=== PATIENT | female | born 1975 | race Caucasian/White ===

== ENCOUNTER 2016-06-10 10:00 | Emergency (ER) | payer OTHER ==
[~2016-06-10] VITALS: Ht 149.9 cm; Wt 48.1 kg
[~2016-06-10 10:00] MED LIST: CALCIUM 600 MG1 EACH PO; CYANOCOBAL1000 MCG/2 IM; DAILY VITE1 EAC1 PO; DEPRIZINE15 MG/1 ML PO; SUMATRIPTAN SUC25 MG PO; TRAZODONE HCL50 MG PO; VENLAFAXINE HCL75 MG PO; WELLBUTRIN XL300 MG PO
[2016-06-10] MEDS ORDERED: BRINTELLIX20 MG PO (10:14)
[2016-06-10] MEDS ORDERED: LAMICTAL100 MG PO (10:15)
[2016-06-10] MEDS ORDERED: LAMICTAL25 MG PO (10:15)
[2016-06-10] MEDS ORDERED: LEVONO-E ESTRA1 EACH PO (10:15)
[2016-06-10] MEDS ORDERED: VALIUM10 MG PO (10:16)
[2016-06-10 11:27] LABS: EOSINOPHIL (%) 0.4 % (0-5); HEMATOCRIT 34.2 % (36.0-46.0); IMMATURE GRANULOCYTE (%) 0.2 % (0.0-0.7); IMMATURE GRANULOCYTE COUNT 0.1 K/uL; LYMPHOCYTE COUNT 2.3 K/uL (1.0-2.8); MCH 32.6 PG (29.0-34.0); MCHC 34.5 G/DL (30.0-36.0); MCV 94.5 FL (83-99); MEAN PLAT.VOLUME 11.6 uM^3 (9.5-12.4); MONOCYTE (%) 4.4 % (3-12); MONOCYTE COUNT 0.2 K/uL (0-0.8); NEUTROPHIL (%) 51.4 % (45-76); NEUTROPHIL COUNT 2.7 K/uL (1.8-6.4); PLATELET COUNT 256 K/uL (156-360); RBC DIS.WIDTH-CV 12.4 % (11.8-14.6); RBC DIS.WIDTH-SD 41.4 % (39-53); RED BLOOD COUNT 3.62 M/uL (3.80-5.20); WHITE BLOOD COUNT 5.3 K/uL (4.1-10.2)
[2016-06-10 11:41] LABS: CHLORIDE 112 mEq/L (99-109); POTASSIUM 3.9 mEq/L (3.7-5.4); SODIUM 142 mEq/L (136-147)
[2016-06-10 11:43] LABS: GLUCOSE 87 mg/dL (70-99)
[2016-06-10 11:44] LABS: ANION GAP 10 MEQ/L (2-14)
[2016-06-10 11:46] LABS: SERUM ETHYL ALCOHOL < 10 mg/dL
[2016-06-10 11:47] LABS: GFR ESTIMATE (CALCULATED) > 59 mL/min/; UREA NITROGEN (BUN) 6 mg/dL (9-23)
[2016-06-10 11:56] LABS: QUANTITATIVE HCG < 4.0 MIU/ML
[2016-06-10 12:16] VITALS: BP 128/82
== END 2016-06-10 12:17 | disposition home or self-care (01) ==
LOC: EME → EDBD 10:00 → EME 12:17
PROVIDERS: Emergency Medicine
DX: F33.2 Major depressive disorder, recurrent severe without psychotic features (principal); F41.9 Anxiety disorder, unspecified; F17.200 Nicotine dependence, unspecified, uncomplicated
CPT/HCPCS: 80048; 81003; 84702; 85025; 90839; 99281; 99284; G0480

== ENCOUNTER 2016-11-29 15:37 | Emergency (ER) | payer OTHER ==
[~2016-11-29] VITALS: Ht 147.3 cm; Wt 46.6 kg
[~2016-11-29 15:37] MED LIST changes: +BRINTELLIX20 MG PO; +LAMICTAL100 MG PO; +LAMICTAL25 MG PO; +LEVONO-E ESTRA1 EACH PO; +VALIUM10 MG PO
[2016-11-29 16:31] LABS: HEMATOCRIT 32.4 % (36.0-46.0); MCH 32.8 PG (29.0-34.0); MCHC 33.6 G/DL (30.0-36.0); MCV 97.6 FL (83-99); MEAN PLAT.VOLUME 10.9 uM^3 (9.5-12.4); PLATELET COUNT 280 K/uL (156-360); RBC DIS.WIDTH-CV 12.8 % (11.8-14.6); RBC DIS.WIDTH-SD 45.5 % (39-53); RED BLOOD COUNT 3.32 M/uL (3.80-5.20)
[2016-11-29 16:32] LABS: ADD MIUA? NO; BILIRUBIN NEGATIVE; BLOOD NEGATIVE; COLOR STRAW ((YELLOW)); GLUCOSE (STRIP) NEGATIVE; KETONES NEGATIVE; LEUKOCYTES NEGATIVE; NITRITE NEGATIVE; PROTEIN (STRIP) NEGATIVE; SPECIFIC GRAVITY 1.002 (1.000-1.030); UROBILINOGEN 0.2 MG/DL (0.2-1.0)
[2016-11-29 16:42] LABS: CHLORIDE 106 mEq/L (99-109); POTASSIUM 3.6 mEq/L (3.7-5.4)
[2016-11-29 16:43] LABS: SODIUM 141 mEq/L (136-147)
[2016-11-29 16:45] LABS: GLUCOSE 85 mg/dL (70-99)
[2016-11-29 16:46] LABS: ANION GAP 13 MEQ/L (2-14)
[2016-11-29 16:47] LABS: TOTAL BILIRUBIN 0.3 mg/dL (0.0-1.0)
[2016-11-29 16:48] LABS: ALKALINE PHOSPHATASE 68 IU/L (3-129); GFR ESTIMATE (CALCULATED) > 59 mL/min/
[2016-11-29 16:50] LABS: UREA NITROGEN (BUN) 5 mg/dL (9-23)
[2016-11-29 16:52] LABS: LIPASE 63 U/L (1.0-51.0)
[2016-11-29 16:59] LABS: QUANTITATIVE HCG < 4.0 MIU/ML
[2016-11-29] MEDS ORDERED: CITRATE OF MAG296 ML PO (17:10)
[2016-11-29] MEDS ORDERED: PHENERGAN25 MG PR (17:42)
[2016-11-29 18:13] VITALS: BP 129/89
== END 2016-11-29 18:15 | disposition home or self-care (01) ==
LOC: EME 15:37
PROVIDERS: Physician Assistant
DX: K59.00 Constipation, unspecified (principal); E86.0 Dehydration; F32.9 Major depressive disorder, single episode, unspecified; F17.200 Nicotine dependence, unspecified, uncomplicated; Z98.84 Bariatric surgery status
CPT/HCPCS: 74000; 80053; 81003; 83690; 84702; 85027; 99281; 99284; J2765; J7030

== ENCOUNTER 2016-12-05 17:39 | Emergency (ER) | payer OTHER ==
[~2016-12-05] VITALS: Ht 147.3 cm; Wt 45.8 kg
[~2016-12-05 17:39] MED LIST changes: +CITRATE OF MAG296 ML PO; +PHENERGAN25 MG PR
[2016-12-05 19:01] LABS: ADD MEDTOX COMMENT Y; AMPHETAMINE NEGATIVE (500 ng/mL); BARBITURATES NEGATIVE (200 ng/mL); BENZODIAZEPINES PRESUMPTIVE POSITIVE (150 ng/mL); COCAINE NEGATIVE (150 ng/mL); INTERNAL CONTROLS VALID? YES; METHADONE NEGATIVE (200 ng/mL); METHAMPHETAMINE NEGATIVE (500 ng/mL); OPIATES (MORPHINE) NEGATIVE (100 ng/mL); OXYCODONE PRESUMPTIVE POSITIVE (100 ng/mL); PHENCYCLIDINE NEGATIVE (25 ng/mL); PROPOXYPHENE NEGATIVE (300 ng/mL); THC CANNABINOIDS PRESUMPTIVE POSITIVE (50 ng/mL); TRICYCLIC ANTIDEPRESSANTS NEGATIVE (300 ng/mL)
[2016-12-05 19:07] LABS: HEMATOCRIT 37.7 % (36.0-46.0); MCH 33.2 PG (29.0-34.0); MCHC 34.2 G/DL (30.0-36.0); MCV 96.9 FL (83-99); MEAN PLAT.VOLUME 11.1 uM^3 (9.5-12.4); PLATELET COUNT 270 K/uL (156-360); RBC DIS.WIDTH-CV 12.5 % (11.8-14.6); RBC DIS.WIDTH-SD 44.5 % (39-53); RED BLOOD COUNT 3.89 M/uL (3.80-5.20); WHITE BLOOD COUNT 8.7 K/uL (4.1-10.2)
[2016-12-05 19:20] LABS: CHLORIDE 105 mEq/L (99-109); SODIUM 137 mEq/L (136-147)
[2016-12-05 19:22] LABS: GLUCOSE 82 mg/dL (70-99)
[2016-12-05 19:23] LABS: ANION GAP 9 MEQ/L (2-14)
[2016-12-05 19:25] LABS: SERUM ETHYL ALCOHOL < 10 mg/dL
[2016-12-05 19:26] LABS: GFR ESTIMATE (CALCULATED) > 59 mL/min/
[2016-12-05 19:27] LABS: UREA NITROGEN (BUN) 9 mg/dL (9-23)
[2016-12-05 19:28] LABS: BENZODIAZEPINES, URINE SCREEN POSITIVE (200 ng/mL)
[2016-12-05 22:14] VITALS: BP 134/70
== END 2016-12-05 22:26 | disposition home or self-care (01) ==
LOC: EME 17:39
PROVIDERS: Emergency Medicine
DX: F32.9 Major depressive disorder, single episode, unspecified (principal); R45.851 Suicidal ideations; S50.812A Abrasion of left forearm, initial encounter; F19.10 Other psychoactive substance abuse, uncomplicated; F41.9 Anxiety disorder, unspecified; X78.8XXA Intentional self-harm by other sharp object, initial encounter; Z91.5 Personal history of self-harm; Z98.84 Bariatric surgery status; F17.200 Nicotine dependence, unspecified, uncomplicated
CPT/HCPCS: 80048; 84999; 85027; 90839; 99281; 99285; G0480

== ENCOUNTER 2017-01-23 19:12 | Emergency (ER) | payer OTHER ==
[~2017-01-23] VITALS: Ht 147.3 cm; Wt 47.2 kg
[2017-01-23 19:45] LABS: HEMATOCRIT 34.7 % (36.0-46.0); MCH 33.4 PG (29.0-34.0); MCHC 34.9 G/DL (30.0-36.0); MCV 95.9 FL (83-99); MEAN PLAT.VOLUME 10.3 uM^3 (9.5-12.4); PLATELET COUNT 256 K/uL (156-360); RBC DIS.WIDTH-CV 12.6 % (11.8-14.6); RBC DIS.WIDTH-SD 44.4 % (39-53); RED BLOOD COUNT 3.62 M/uL (3.80-5.20); WHITE BLOOD COUNT 6.8 K/uL (4.1-10.2)
[2017-01-23 19:58] LABS: CHLORIDE 106 mEq/L (99-109); POTASSIUM 3.5 mEq/L (3.7-5.4); SODIUM 138 mEq/L (136-147)
[2017-01-23 20:00] LABS: GLUCOSE 96 mg/dL (70-99)
[2017-01-23 20:02] LABS: ANION GAP 12 MEQ/L (2-14)
[2017-01-23 20:04] LABS: GFR ESTIMATE (CALCULATED) > 59 mL/min/
[2017-01-23 20:05] LABS: UREA NITROGEN (BUN) 9 mg/dL (9-23)
[2017-01-23 20:43] LABS: ADD MIUA? YES; BILIRUBIN NEGATIVE; BLOOD SMALL; COLOR YELLOW ((YELLOW)); GLUCOSE (STRIP) NEGATIVE; KETONES NEGATIVE; LEUKOCYTES NEGATIVE; NITRITE NEGATIVE; PROTEIN (STRIP) NEGATIVE; SPECIFIC GRAVITY 1.006 (1.000-1.030); UROBILINOGEN 0.2 MG/DL (0.2-1.0)
[2017-01-23 20:46] LABS: BACTERIA NONE SEEN /HPF; EPITHELIAL CELLS RARE /HPF; MUCUS TRACE /LPF; RED BLOOD CELLS 0-5 /HPF (0-5); UCUL ADDED? NO; WHITE BLOOD CELLS 0-5 /HPF (0-5)
[2017-01-23 21:51] VITALS: BP 145/93
== END 2017-01-23 21:55 | disposition home or self-care (01) ==
LOC: EME → EDBD 19:12 → EME 19:12
DX: R56.9 Unspecified convulsions (principal); F32.9 Major depressive disorder, single episode, unspecified; F17.200 Nicotine dependence, unspecified, uncomplicated; Z98.84 Bariatric surgery status; Z91.5 Personal history of self-harm
CPT/HCPCS: 70450; 80048; 81003; 85027; 99281; 99285

== ENCOUNTER 2017-01-28 21:49 | Emergency (ER) | payer OTHER ==
[~2017-01-28] VITALS: Ht 149.9 cm; Wt 48.5 kg
[2017-01-28 22:35] LABS: HEMATOCRIT 35.7 % (36.0-46.0); MCH 32.6 PG (29.0-34.0); MCHC 34.7 G/DL (30.0-36.0); MCV 93.9 FL (83-99); MEAN PLAT.VOLUME 10.8 uM^3 (9.5-12.4); PLATELET COUNT 265 K/uL (156-360); RBC DIS.WIDTH-CV 12.3 % (11.8-14.6); RBC DIS.WIDTH-SD 42.5 % (39-53); WHITE BLOOD COUNT 9.2 K/uL (4.1-10.2)
[2017-01-28 23:25] LABS: ALKALINE PHOSPHATASE 65 IU/L (3-129); ANION GAP 13 MEQ/L (2-14); CHLORIDE 104 MEQ/L (99-109); DIRECT BILIRUBIN 0.1 mg/dL (0.0-0.3); GFR ESTIMATE (CALCULATED) > 59 mL/min/; GLUCOSE 67 mg/dL (70-99); PHENOBARBITAL < 5.0 MCG/ML (15-40); POTASSIUM 3.8 MEQ/L (3.7-5.4); SAMPLE HEMOLYSIS CHECK 0; SAMPLE ICTERIC CHECK 0; SAMPLE LIPEMIA CHECK 0; SODIUM 137 MEQ/L (136-147); TOTAL BILIRUBIN 0.3 MG/DL (0.0-1.0); UREA NITROGEN (BUN) 8 mg/dL (9-23)
[2017-01-28 23:43] LABS: SALICYLATE < 3.0 MG/DL (15-30)
[2017-01-29 00:41] LABS: ADD MIUA? NO; BILIRUBIN NEGATIVE; BLOOD NEGATIVE; COLOR COLORLESS ((YELLOW)); GLUCOSE (STRIP) NEGATIVE; KETONES NEGATIVE; LEUKOCYTES NEGATIVE; NITRITE NEGATIVE; PROTEIN (STRIP) NEGATIVE; SPECIFIC GRAVITY 1.003 (1.000-1.030); UROBILINOGEN 0.2 MG/DL (0.2-1.0)
[2017-01-29 01:23] LABS: UCUL ADDED? NO
[2017-01-29 02:08] LABS: CREATINE KINASE 71 IU/L (1-294)
[2017-01-29 04:51] VITALS: BP 125/81
== END 2017-01-29 04:52 | disposition home or self-care (01) ==
LOC: EME 21:49
PROVIDERS: Emergency Medicine
DX: T43.291A Poisoning by other antidepressants, accidental (unintentional), initial encounter (principal); F41.9 Anxiety disorder, unspecified; R56.9 Unspecified convulsions; F33.2 Major depressive disorder, recurrent severe without psychotic features; R51 Headache; R00.0 Tachycardia, unspecified; R06.82 Tachypnea, not elsewhere classified; R45.83 Excessive crying of child, adolescent or adult; Z98.84 Bariatric surgery status; F17.200 Nicotine dependence, unspecified, uncomplicated
CPT/HCPCS: 80048; 80076; 80156; 80184; 80185; 81003; 82550; 85027; 90839; 93005; 99281; 99285; G0480; J2060; J7030

== ENCOUNTER 2017-02-09 12:43 | Inpatient (IN) | payer SELFPAY ==
[~2017-02-09] VITALS: Ht 147.3 cm; Wt 43.6 kg
[2017-02-09 13:45] LABS: EOSINOPHIL (%) 1.1 % (0-5); EOSINOPHIL COUNT 0.1 K/uL (0-0.3); HEMATOCRIT 36.9 % (36.0-46.0); IMMATURE GRANULOCYTE (%) 0.2 % (0.0-0.7); INSTRUMENT ABS NEUTROPHIL CT 2.9 K/uL; LYMPHOCYTE COUNT 2.8 K/uL (1.0-2.8); MCH 31.9 PG (29.0-34.0); MCHC 34.4 G/DL (30.0-36.0); MCV 92.7 FL (83-99); MEAN PLAT.VOLUME 10.8 uM^3 (9.5-12.4); MONOCYTE (%) 9.8 % (3-12); MONOCYTE COUNT 0.6 K/uL (0-0.8); NEUTROPHIL (%) 44.8 % (45-76); NEUTROPHIL COUNT 2.9 K/uL (1.8-6.4); PLATELET COUNT 255 K/uL (156-360); RBC DIS.WIDTH-CV 12.3 % (11.8-14.6); RBC DIS.WIDTH-SD 42.5 % (39-53); RED BLOOD COUNT 3.98 M/uL (3.80-5.20); WHITE BLOOD COUNT 6.4 K/uL (4.1-10.2)
[2017-02-09 13:52] LABS: CHLORIDE 105 mEq/L (99-109); POTASSIUM 3.9 mEq/L (3.7-5.4); SODIUM 142 mEq/L (136-147)
[2017-02-09 13:55] LABS: GLUCOSE 57 mg/dL (70-99)
[2017-02-09 13:56] LABS: ANION GAP 14 MEQ/L (2-14); TOTAL BILIRUBIN 0.5 mg/dL (0.0-1.0)
[2017-02-09 13:57] LABS: SERUM ETHYL ALCOHOL < 10 mg/dL
[2017-02-09 13:58] LABS: GFR ESTIMATE (CALCULATED) > 59 mL/min/
[2017-02-09 13:59] LABS: ALKALINE PHOSPHATASE 71 IU/L (3-129)
[2017-02-09 14:00] LABS: DIRECT BILIRUBIN 0.2 mg/dL (0.0-0.3); UREA NITROGEN (BUN) 10 mg/dL (9-23)
[2017-02-09 14:02] LABS: CREATINE KINASE 91 IU/L (1-294); SALICYLATE < 5.0 MG/DL (15-30); TOTAL CK 91 IU/L (1-294)
[2017-02-09 15:21] LABS: ADD MIUA? NO; BILIRUBIN NEGATIVE; BLOOD NEGATIVE; COLOR STRAW ((YELLOW)); GLUCOSE (STRIP) NEGATIVE; KETONES NEGATIVE; LEUKOCYTES NEGATIVE; NITRITE NEGATIVE; PROTEIN (STRIP) NEGATIVE; SPECIFIC GRAVITY 1.004 (1.000-1.030); UROBILINOGEN 0.2 MG/DL (0.2-1.0)
[2017-02-09 15:33] LABS: AMPHETAMINE NEGATIVE (500 ng/mL); BARBITURATES NEGATIVE (200 ng/mL); BENZODIAZEPINES NEGATIVE (150 ng/mL); COCAINE NEGATIVE (150 ng/mL); INTERNAL CONTROLS VALID? YES; METHADONE NEGATIVE (200 ng/mL); METHAMPHETAMINE NEGATIVE (500 ng/mL); OPIATES (MORPHINE) NEGATIVE (100 ng/mL); OXYCODONE NEGATIVE (100 ng/mL); PHENCYCLIDINE NEGATIVE (25 ng/mL); PROPOXYPHENE NEGATIVE (300 ng/mL); THC CANNABINOIDS NEGATIVE (50 ng/mL); TRICYCLIC ANTIDEPRESSANTS NEGATIVE (300 ng/mL)
[2017-02-09] MEDS ORDERED: RANITIDINE HCL150 M1 PO (21:04)
[2017-02-09] MEDS ORDERED: NEURONTIN600 MG PO (21:04)
[2017-02-09] MEDS ORDERED: KLONOPIN1 MG PO ×2 (21:06→21:07)
[2017-02-09] MEDS ORDERED: BRINTELLIX10 MG PO (21:08)
[2017-02-09] MEDS ORDERED: EXCEDRIN MIGRA1 EAC3 PO (21:10)
[2017-02-09 22:11] VITALS: BP 114/78
[2017-02-10 07:56] VITALS: BP 121/70
[2017-02-10 15:36] VITALS: BP 151/76
[2017-02-10 19:31] VITALS: BP 123/75
[2017-02-11 07:16] VITALS: BP 102/59
[2017-02-11 15:28] VITALS: BP 11/65
[2017-02-12 07:24] VITALS: BP 87/49
[2017-02-12 15:25] VITALS: BP 109/59
[2017-02-13 07:36] VITALS: BP 103/66
[2017-02-13] MEDS ORDERED: PAXIL30 MG PO (09:06)
[2017-02-13] MEDS ORDERED: BUTALB-APAP-CA1 EACH PO (11:24)
== END 2017-02-13 11:26 | disposition home or self-care (01) | DRG 885 ==
LOC: EME 12:43 → EDOF 20:16 → 1WEST 20:16 → ENRESERV 21:20 → 1WEST 21:51
PROVIDERS: Emergency Medicine
DX: F33.2 Major depressive disorder, recurrent severe without psychotic features (principal); F41.9 Anxiety disorder, unspecified; F60.9 Personality disorder, unspecified; T43.292A Poisoning by other antidepressants, intentional self-harm, initial encounter; T42.6X2A Poisoning by other antiepileptic and sedative-hypnotic drugs, intentional self-harm, initial encounter; F12.90 Cannabis use, unspecified, uncomplicated; R00.0 Tachycardia, unspecified; F17.200 Nicotine dependence, unspecified, uncomplicated; Z98.84 Bariatric surgery status; Z91.5 Personal history of self-harm
CPT/HCPCS: 80048; 80076; 81003; 82306; 82550; 82553; 82607; 82746; 85025; 90839; 93005; 97150 GO; 97165 GO; 99281; 99285; G0480; J2060; J7030